=== PATIENT | male | born 1945 | race Two or more races ===

== ENCOUNTER → 2018-10-27 08:46 | Outpatient (CLI) | payer OTHER | END | disposition home or self-care (01) | LOC: LAB 08:46 | DX: E03.8 Other specified hypothyroidism (principal); D69.2 Other nonthrombocytopenic purpura; C61 Malignant neoplasm of prostate; D50.8 Other iron deficiency anemias; D51.8 Other vitamin B12 deficiency anemias; D51.1 Vitamin B12 deficiency anemia due to selective vitamin B12 malabsorption with proteinuria; D51.0 Vitamin B12 deficiency anemia due to intrinsic factor deficiency; E06.3 Autoimmune thyroiditis; R97.0 Elevated carcinoembryonic antigen [CEA]; R97.8 Other abnormal tumor markers; R97.20 Elevated prostate specific antigen [PSA]; D68.8 Other specified coagulation defects ==

== ENCOUNTER → 2018-12-22 08:45 | Outpatient (CLI) | payer OTHER | END | disposition home or self-care (01) | LOC: LAB 08:45 | DX: D69.2 Other nonthrombocytopenic purpura (principal); C61 Malignant neoplasm of prostate; D53.0 Protein deficiency anemia; D50.8 Other iron deficiency anemias; D51.8 Other vitamin B12 deficiency anemias; I10 Essential (primary) hypertension; D68.8 Other specified coagulation defects; D68.0 Von Willebrand disease; B20 Human immunodeficiency virus [HIV] disease; B18.8 Other chronic viral hepatitis; E03.8 Other specified hypothyroidism ==

== ENCOUNTER 2019-05-04 07:36 | Outpatient (CLI) | payer OTHER | END 2019-05-04 07:40 | disposition home or self-care (01) | LOC: LAB 07:36 | DX: D50.8 Other iron deficiency anemias (principal); I10 Essential (primary) hypertension; D69.2 Other nonthrombocytopenic purpura; D83.0 Common variable immunodeficiency with predominant abnormalities of B-cell numbers and function; E04.2 Nontoxic multinodular goiter; E03.8 Other specified hypothyroidism; R97.0 Elevated carcinoembryonic antigen [CEA]; R97.20 Elevated prostate specific antigen [PSA]; R97.8 Other abnormal tumor markers; I73.89 Other specified peripheral vascular diseases; I70.0 Atherosclerosis of aorta; H40.89 Other specified glaucoma; H93.90 Unspecified disorder of ear, unspecified ear; R49.0 Dysphonia; K76.0 Fatty (change of) liver, not elsewhere classified; H74.90 Unspecified disorder of middle ear and mastoid, unspecified ear; D69.6 Thrombocytopenia, unspecified; D64.89 Other specified anemias; C61 Malignant neoplasm of prostate; F41.8 Other specified anxiety disorders; F33.8 Other recurrent depressive disorders; M51.37 Other intervertebral disc degeneration, lumbosacral region; M54.5 Low back pain; M79.7 Fibromyalgia; M15.0 Primary generalized (osteo)arthritis; M54.10 Radiculopathy, site unspecified; M85.88 Other specified disorders of bone density and structure, other site; M46.1 Sacroiliitis, not elsewhere classified; M75.111 Incomplete rotator cuff tear or rupture of right shoulder, not specified as traumatic; J44.9 Chronic obstructive pulmonary disease, unspecified; L21.8 Other seborrheic dermatitis; E55.9 Vitamin D deficiency, unspecified; E53.8 Deficiency of other specified B group vitamins; R73.01 Impaired fasting glucose; Z85.46 Personal history of malignant neoplasm of prostate; Z68.20 Body mass index [BMI] 20.0-20.9, adult ==

== ENCOUNTER → 2021-04-27 08:19 | Outpatient (CLI) | payer OTHER | END | disposition home or self-care (01) | LOC: LAB 08:19 | PROVIDERS: ATTEND Internal Medicine Hematology & Oncology | DX: D50.8 Other iron deficiency anemias (principal); R79.9 Abnormal finding of blood chemistry, unspecified; I10 Essential (primary) hypertension ==

== ENCOUNTER 2021-07-27 08:44 | Outpatient (CLI) | payer OTHER | END 2021-07-27 08:51 | disposition home or self-care (01) | LOC: LAB 08:44 | PROVIDERS: ATTEND Internal Medicine Hematology & Oncology | DX: D50.8 Other iron deficiency anemias (principal); R79.9 Abnormal finding of blood chemistry, unspecified; I10 Essential (primary) hypertension; C61 Malignant neoplasm of prostate; R74.02 Elevation of levels of lactic acid dehydrogenase [LDH]; K76.89 Other specified diseases of liver; C25.9 Malignant neoplasm of pancreas, unspecified; R97.8 Other abnormal tumor markers; R97.0 Elevated carcinoembryonic antigen [CEA]; R97.20 Elevated prostate specific antigen [PSA]; D69.2 Other nonthrombocytopenic purpura; I82.532 Chronic embolism and thrombosis of left popliteal vein; D53.0 Protein deficiency anemia; E04.2 Nontoxic multinodular goiter ==

== ENCOUNTER 2022-05-25 07:36 | Outpatient (CLI) | payer OTHER | END 2022-05-25 07:37 | disposition home or self-care (01) | LOC: LAB 07:36 | PROVIDERS: ATTEND Internal Medicine Hematology & Oncology | DX: D50.8 Other iron deficiency anemias (principal); R79.9 Abnormal finding of blood chemistry, unspecified; I10 Essential (primary) hypertension; R74.02 Elevation of levels of lactic acid dehydrogenase [LDH]; K76.89 Other specified diseases of liver; D68.59 Other primary thrombophilia; D68.51 Activated protein C resistance; E55.9 Vitamin D deficiency, unspecified; E53.8 Deficiency of other specified B group vitamins; E03.8 Other specified hypothyroidism; I70.0 Atherosclerosis of aorta; I87.2 Venous insufficiency (chronic) (peripheral); I82.532 Chronic embolism and thrombosis of left popliteal vein; C61 Malignant neoplasm of prostate ==

== ENCOUNTER 2022-11-05 07:37 | Outpatient (CLI) | payer OTHER | END 2022-11-05 07:43 | disposition home or self-care (01) | LOC: LAB 07:37 | PROVIDERS: ATTEND Internal Medicine Hematology & Oncology | DX: D50.8 Other iron deficiency anemias (principal); R79.9 Abnormal finding of blood chemistry, unspecified; I10 Essential (primary) hypertension; R74.02 Elevation of levels of lactic acid dehydrogenase [LDH]; K76.89 Other specified diseases of liver; D68.61 Antiphospholipid syndrome; D69.2 Other nonthrombocytopenic purpura; I82.532 Chronic embolism and thrombosis of left popliteal vein; D53.0 Protein deficiency anemia; E04.2 Nontoxic multinodular goiter; I70.0 Atherosclerosis of aorta; I87.2 Venous insufficiency (chronic) (peripheral); I70.213 Atherosclerosis of native arteries of extremities with intermittent claudication, bilateral legs; E03.8 Other specified hypothyroidism; J44.9 Chronic obstructive pulmonary disease, unspecified; H40.9 Unspecified glaucoma; H93.11 Tinnitus, right ear; K76.0 Fatty (change of) liver, not elsewhere classified; H74.90 Unspecified disorder of middle ear and mastoid, unspecified ear; D69.6 Thrombocytopenia, unspecified; D64.9 Anemia, unspecified; C61 Malignant neoplasm of prostate; F41.9 Anxiety disorder, unspecified; F33.9 Major depressive disorder, recurrent, unspecified; M51.37 Other intervertebral disc degeneration, lumbosacral region; M45.9 Ankylosing spondylitis of unspecified sites in spine; M79.7 Fibromyalgia; M85.89 Other specified disorders of bone density and structure, multiple sites; M46.1 Sacroiliitis, not elsewhere classified; M75.111 Incomplete rotator cuff tear or rupture of right shoulder, not specified as traumatic; M12.541 Traumatic arthropathy, right hand; M54.16 Radiculopathy, lumbar region; M25.512 Pain in left shoulder; G60.3 Idiopathic progressive neuropathy; G31.84 Mild cognitive impairment of uncertain or unknown etiology; L21.9 Seborrheic dermatitis, unspecified; Z68.21 Body mass index [BMI] 21.0-21.9, adult; E78.2 Mixed hyperlipidemia; R73.01 Impaired fasting glucose; E55.9 Vitamin D deficiency, unspecified; E53.8 Deficiency of other specified B group vitamins; Z12.11 Encounter for screening for malignant neoplasm of colon; N40.0 Benign prostatic hyperplasia without lower urinary tract symptoms ==

== ENCOUNTER → 2022-11-12 10:39 | Outpatient (CLI) | payer OTHER | END | disposition home or self-care (01) | LOC: LAB 10:39 | PROVIDERS: ATTEND Internal Medicine | DX: Z12.11 Encounter for screening for malignant neoplasm of colon (principal) ==

== ENCOUNTER → 2023-04-15 09:05 | Outpatient (CLI) | payer OTHER ==
[2023-04-15 12:41] LABS: HEMATOCRIT 38.9 % (39.0-48.0); HEMOGLOBIN 13.5 g/dL (13-16.00); MEAN CELL VOLUME 93.2 fL (80.0-100.00); MEAN CORPUSCULAR HEMOGLOBIN 32.3 pg (27.00-32.0); MEAN CORPUSCULAR HGB CONC 34.6 g/dl (32.0-36.0); RED BLOOD COUNT 4.18 M/uL (4.00-6.00); RED CELL DISTRIBUTION WIDTH 13.7 % (11.5-14.5)
[2023-04-15 12:46] LABS: PH,URINE 7.5 (5.0-8.0); URINE APPEARANCE Clear; URINE BILIRRUBIN Negative (NEGATIVE); URINE BLOOD Negative; URINE COLOR Yellow; URINE GLUCOSE Negative (NEGATIVE); URINE LEUKOCYTE Negative; URINE NITRATE Negative; URINE PROTEIN Negative (NEGATIVE); URINE UROBILINOGEN 0.2 E.U./dl
[2023-04-15 12:50] LABS: URINE BACTERIA 45.3 uL (0.0-1933); URINE RBC 14.9 uL (0.0-20.8)
[2023-04-15 13:17] LABS: URINE EPITHELIAL CELLS 0.3 uL (0.0-38.8); URINE WBC 0.9 uL (0.0-23.2)
[2023-04-15 13:24] LABS: PLATELET COUNT 117 K/uL (150-450)
[2023-04-15 13:26] LABS: % SATURACION 19.8 % (20-50); ALBUMIN 3.9 gm/dL (3.4-5.0); BILIRUBIN TOTAL 0.99 mg/dL (0.3-1.2); CALCIUM 9.1 mg/dL (8.5-10.1); CHOL HDL RATIO 1.8 (0-5.0); CREATININE SERUM 0.76 mg/dL (0.70-1.30); FERRITIN 265.5 NG/ML (26-388); GFR 98.94; GLOBULINA 2.8 G/DL (2.4-3.5); POTASSIUM 4.85 mEq/L (3.5-5.1); TOTAL PROTEIN 6.7 gm/dL (6.4-8.2); TSH 1.5 uIU/mL (0.358-3.74)
[2023-04-16 13:49] LABS: FOLIC ACID > 20.00 ng/ml (4.78-20)
[2023-04-16 14:58] LABS: VITAMIN D3 25 HYDROXY 44.41 ng/ml (30-120)
== END | disposition home or self-care (01) ==
LOC: LAB 09:05
PROVIDERS: ATTEND Internal Medicine Hematology & Oncology
DX: I70.0 Atherosclerosis of aorta (principal); I82.532 Chronic embolism and thrombosis of left popliteal vein; I87.2 Venous insufficiency (chronic) (peripheral); I70.213 Atherosclerosis of native arteries of extremities with intermittent claudication, bilateral legs; I67.82 Cerebral ischemia; I67.2 Cerebral atherosclerosis; E04.2 Nontoxic multinodular goiter; E03.8 Other specified hypothyroidism; J44.9 Chronic obstructive pulmonary disease, unspecified; H40.9 Unspecified glaucoma; H93.90 Unspecified disorder of ear, unspecified ear; R49.0 Dysphonia; H43.11 Vitreous hemorrhage, right eye; Z96.1 Presence of intraocular lens; K76.0 Fatty (change of) liver, not elsewhere classified; Z85.46 Personal history of malignant neoplasm of prostate; H74.90 Unspecified disorder of middle ear and mastoid, unspecified ear; D69.6 Thrombocytopenia, unspecified; D64.9 Anemia, unspecified; E72.12 Methylenetetrahydrofolate reductase deficiency; D53.0 Protein deficiency anemia; E72.11 Homocystinuria; C61 Malignant neoplasm of prostate; F41.9 Anxiety disorder, unspecified; F33.9 Major depressive disorder, recurrent, unspecified; M51.37 Other intervertebral disc degeneration, lumbosacral region; M54.50 Low back pain, unspecified; M79.7 Fibromyalgia; M15.0 Primary generalized (osteo)arthritis; M85.89 Other specified disorders of bone density and structure, multiple sites; M46.1 Sacroiliitis, not elsewhere classified; M75.111 Incomplete rotator cuff tear or rupture of right shoulder, not specified as traumatic; M54.16 Radiculopathy, lumbar region; M48.06 Spinal stenosis, lumbar region; M25.512 Pain in left shoulder; G60.3 Idiopathic progressive neuropathy; R42 Dizziness and giddiness; L21.9 Seborrheic dermatitis, unspecified; Z68.21 Body mass index [BMI] 21.0-21.9, adult; E78.2 Mixed hyperlipidemia; R73.01 Impaired fasting glucose; E55.9 Vitamin D deficiency, unspecified; E53.8 Deficiency of other specified B group vitamins; Z12.11 Encounter for screening for malignant neoplasm of colon

== ENCOUNTER → 2024-06-01 07:16 | Outpatient (CLI) | payer OTHER ==
[2024-06-01 08:57] LABS: HEMATOCRIT 41.3 % (39.0-48.0); HEMOGLOBIN 13.9 g/dL (13-16.00); MEAN CELL VOLUME 93.8 fL (80.0-100.00); MEAN CORPUSCULAR HEMOGLOBIN 31.6 pg (27.00-32.0); MEAN CORPUSCULAR HGB CONC 33.7 g/dl (32.0-36.0); RED BLOOD COUNT 4.41 M/uL (4.00-6.00); RED CELL DISTRIBUTION WIDTH 13.8 % (11.5-14.5)
[2024-06-01 09:05] LABS: PLATELET COUNT 118 K/uL (150-450)
[2024-06-01 09:08] LABS: PH,URINE 7.5 (5.0-8.0); URINE APPEARANCE Clear; URINE BILIRRUBIN Negative (NEGATIVE); URINE BLOOD Negative; URINE COLOR Yellow; URINE GLUCOSE Negative (NEGATIVE); URINE KETONE Negative (NEGATIVE); URINE LEUKOCYTE Negative; URINE NITRATE Negative; URINE PROTEIN Negative (NEGATIVE); URINE UROBILINOGEN 0.2 E.U./dl
[2024-06-01 09:12] LABS: URINE BACTERIA 7.3 uL (0.0-1933); URINE RBC 14.8 uL (0.0-20.8)
[2024-06-01 09:32] LABS: % SATURACION 48.2 % (20-50); ALBUMIN 4.1 gm/dL (3.4-5.0); BILIRUBIN TOTAL 0.8 mg/dL (0.3-1.2); CREATININE SERUM 0.85 mg/dL (0.70-1.30); GFR 86.51; GLOBULINA 3.1 G/DL (2.4-3.5); POTASSIUM 4.83 mEq/L (3.5-5.1); PROSTATIC SPECIFIC ANTIGEN 0.017 NG/ML (0.010-4.00); TOTAL PROTEIN 7.2 gm/dL (6.4-8.2); TSH 3.12 uIU/mL (0.358-3.74)
[2024-06-01 09:34] LABS: URINE EPITHELIAL CELLS 0.3 uL (0.0-38.8); URINE WBC 0.6 uL (0.0-23.2)
[2024-06-03 08:20] LABS: MANUAL PLATELET COUNT 284
[2024-06-03 08:22] LABS: PLATELET ESTIMATE NORMAL (NORMAL)
[2024-06-03 11:02] LABS: FOLIC ACID > 20.00 ng/ml (4.78-20); VITAMIN D3 25 HYDROXY 35.68 ng/ml (30-120)
== END | disposition home or self-care (01) ==
LOC: LAB 07:16
PROVIDERS: ATTEND Internal Medicine Hematology & Oncology
DX: D69.2 Other nonthrombocytopenic purpura (principal); C61 Malignant neoplasm of prostate; D53.0 Protein deficiency anemia; E04.2 Nontoxic multinodular goiter; D50.8 Other iron deficiency anemias; R79.9 Abnormal finding of blood chemistry, unspecified; I10 Essential (primary) hypertension; R74.02 Elevation of levels of lactic acid dehydrogenase [LDH]; K76.89 Other specified diseases of liver; E55.9 Vitamin D deficiency, unspecified; R97.0 Elevated carcinoembryonic antigen [CEA]; I35.1 Nonrheumatic aortic (valve) insufficiency; I34.0 Nonrheumatic mitral (valve) insufficiency; I36.1 Nonrheumatic tricuspid (valve) insufficiency; I70.0 Atherosclerosis of aorta; I87.2 Venous insufficiency (chronic) (peripheral); I82.532 Chronic embolism and thrombosis of left popliteal vein; I70.213 Atherosclerosis of native arteries of extremities with intermittent claudication, bilateral legs; I67.82 Cerebral ischemia; E03.8 Other specified hypothyroidism; J44.9 Chronic obstructive pulmonary disease, unspecified; G47.33 Obstructive sleep apnea (adult) (pediatric); H40.9 Unspecified glaucoma; H93.90 Unspecified disorder of ear, unspecified ear; R49.0 Dysphonia; H43.11 Vitreous hemorrhage, right eye; Z96.1 Presence of intraocular lens; K76.0 Fatty (change of) liver, not elsewhere classified; R10.10 Upper abdominal pain, unspecified; Z85.46 Personal history of malignant neoplasm of prostate; H74.90 Unspecified disorder of middle ear and mastoid, unspecified ear; D69.6 Thrombocytopenia, unspecified; D64.9 Anemia, unspecified; D68.61 Antiphospholipid syndrome; F41.9 Anxiety disorder, unspecified; F33.9 Major depressive disorder, recurrent, unspecified; M51.379 Other intervertebral disc degeneration, lumbosacral region without mention of lumbar back pain or lower extremity pain; M54.50 Low back pain, unspecified; M79.7 Fibromyalgia; M15.0 Primary generalized (osteo)arthritis; M85.89 Other specified disorders of bone density and structure, multiple sites; M46.1 Sacroiliitis, not elsewhere classified; M75.111 Incomplete rotator cuff tear or rupture of right shoulder, not specified as traumatic; M54.16 Radiculopathy, lumbar region; M48.061 Spinal stenosis, lumbar region without neurogenic claudication; M25.512 Pain in left shoulder; G60.3 Idiopathic progressive neuropathy; R42 Dizziness and giddiness; L21.9 Seborrheic dermatitis, unspecified; Z68.1 Body mass index [BMI] 19.9 or less, adult; N39.0 Urinary tract infection, site not specified; E78.2 Mixed hyperlipidemia; R73.01 Impaired fasting glucose; E53.8 Deficiency of other specified B group vitamins; Z12.11 Encounter for screening for malignant neoplasm of colon

== ENCOUNTER 2024-10-29 09:28 | Outpatient (CLI) | payer OTHER ==
[2024-10-29 10:27] LABS: BASO % 0.6 % (0.1-1.2); EOS # 0.09 (0.04-0.54); EOS % 1.8 % (0.7-7.0); LYMPH # 1.25 (1.18-3.74); LYMPH % 24.5 % (19.3-53.1); MEAN PLATELET VOLUME 10.90 fl (9.4-12.4); MONO # 0.30 (0.24-0.82); MONO % 5.9 % (4.7-12.5); NEUT # 3.42 (1.56-6.13); NEUT % 66.8 % (34.0-71.1); RED CELL DISTRIBUTION WIDTH 12.6 % (11.6-14.4)
[2024-10-29 10:34] LABS: URINE APPEARANCE Clear; URINE BILIRRUBIN Negative (NEGATIVE); URINE BLOOD Negative; URINE COLOR Yellow; URINE GLUCOSE Negative (NEGATIVE); URINE KETONE Negative (NEGATIVE); URINE LEUKOCYTE Negative; URINE NITRATE Negative; URINE PROTEIN Negative (NEGATIVE); URINE UROBILINOGEN 0.2 E.U./dl
[2024-10-29 10:36] LABS: URINE BACTERIA 7.1 uL (0.0-1933); URINE RBC 20.0 uL (0.0-20.8)
[2024-10-29 11:28] LABS: URINE CAST 0.00 uL (0.0-1.40); URINE EPITHELIAL CELLS 0.4 uL (0.0-38.8); URINE WBC 1.2 uL (0.0-23.2)
[2024-10-29 11:41] LABS: % SATURACION 36.6 % (20-50); ALT/SGPT 30.0 U/L (12-78); AST/SGOT 21.0 U/L (15-37); BILIRUBIN TOTAL 0.83 mg/dL (0.3-1.2); BUN CREA RATIO 16.0 (7.0-25.0); CHOL HDL RATIO 2.0 (0-5.0); CREATININE SERUM 0.74 mg/dL (0.70-1.30); FE 108.0 ug/dl (65-175); GFR 101.51; GLOBULINA 3.1 G/DL (2.4-3.5); GLUCOSE FASTING 95.0 mg/dL (65-100); HDL 83.0 mg/dl (40-60); LDH 184.0 U/L (87-241); LDL 74.0 mg/dl (0-130); OSMOLALITY SERUM 283.0 MOSM/KG (275-295); PROSTATIC SPECIFIC ANTIGEN 0.017 NG/ML (0.010-4.00); T4 FREE 0.98 NG/ML (0.76-1.46); TSH 2.44 uIU/mL (0.358-3.74); VLDL 11.0 (0-39)
[2024-10-29 13:09] LABS: FOLIC ACID > 20.00 ng/ml (4.78-20)
[2024-10-31 08:49] LABS: MANUAL PLATELET COUNT 124
== END 2024-10-29 09:44 | disposition home or self-care (01) ==
LOC: LAB 09:28
PROVIDERS: ATTEND Internal Medicine Hematology & Oncology
DX: D69.2 Other nonthrombocytopenic purpura (principal); C61 Malignant neoplasm of prostate; I82.532 Chronic embolism and thrombosis of left popliteal vein; D53.0 Protein deficiency anemia; D68.61 Antiphospholipid syndrome; E04.2 Nontoxic multinodular goiter; D50.8 Other iron deficiency anemias; R79.9 Abnormal finding of blood chemistry, unspecified; I10 Essential (primary) hypertension; R74.02 Elevation of levels of lactic acid dehydrogenase [LDH]; K76.89 Other specified diseases of liver; E55.9 Vitamin D deficiency, unspecified; R97.0 Elevated carcinoembryonic antigen [CEA]; E03.8 Other specified hypothyroidism; I35.1 Nonrheumatic aortic (valve) insufficiency; I34.0 Nonrheumatic mitral (valve) insufficiency; I36.1 Nonrheumatic tricuspid (valve) insufficiency; I70.0 Atherosclerosis of aorta; I87.2 Venous insufficiency (chronic) (peripheral); I70.213 Atherosclerosis of native arteries of extremities with intermittent claudication, bilateral legs; I68.2 Cerebral arteritis in other diseases classified elsewhere; J44.9 Chronic obstructive pulmonary disease, unspecified; G47.33 Obstructive sleep apnea (adult) (pediatric); H40.9 Unspecified glaucoma; H93.90 Unspecified disorder of ear, unspecified ear; H43.11 Vitreous hemorrhage, right eye; R49.0 Dysphonia; Z96.1 Presence of intraocular lens; K56.609 Unspecified intestinal obstruction, unspecified as to partial versus complete obstruction; Z85.46 Personal history of malignant neoplasm of prostate; H74.90 Unspecified disorder of middle ear and mastoid, unspecified ear; D69.6 Thrombocytopenia, unspecified; D64.9 Anemia, unspecified; F41.9 Anxiety disorder, unspecified; F33.9 Major depressive disorder, recurrent, unspecified; M54.50 Low back pain, unspecified; M79.7 Fibromyalgia; M15.0 Primary generalized (osteo)arthritis; M85.89 Other specified disorders of bone density and structure, multiple sites; M46.1 Sacroiliitis, not elsewhere classified; M54.16 Radiculopathy, lumbar region; M48.06 Spinal stenosis, lumbar region; M25.512 Pain in left shoulder; M79.672 Pain in left foot; M79.671 Pain in right foot; G60.3 Idiopathic progressive neuropathy; R42 Dizziness and giddiness; L21.9 Seborrheic dermatitis, unspecified; G89.4 Chronic pain syndrome; Z98.1 Arthrodesis status; N39.0 Urinary tract infection, site not specified; E78.2 Mixed hyperlipidemia; R73.01 Impaired fasting glucose; Z12.11 Encounter for screening for malignant neoplasm of colon